=== PATIENT | male | born 1980 | race Caucasian/White ===

== ENCOUNTER 2023-07-14 06:53 | Emergency (ER) | payer OTHER ==
[~2023-07-14] VITALS: Ht 180.3 cm; Wt 111.1 kg
[2023-07-14] MEDS ORDERED: DILTIAZEM HCL 25 MG IV ONE (07:28)
[2023-07-14] MEDS: DILTIAZEM HCL 25 MG IV IV ONE (07:39)
[2023-07-14 07:53] LABS: CALCIUM 9.3 mg/dL (8.5-10.1); CARBON DIOXIDE 20 mmol/L (21-32); CHLORIDE 105 mmol/L (98-107); CREATININE 1.3 mg/dL (0.6-1.3); GLUCOSE 140 mg/dL (74-106); POTASSIUM 4.1 mmol/L (3.5-5.1); SODIUM SERUM 139 mmol/L (136-145); UREA NITROGEN, BLOOD 19 mg/dL (7-18)
[2023-07-14 07:54] LABS: *BILIRUBIN,URIN NEGATIVE (NEGATIVE); *CLARITY,URINE CLEAR (CLEAR); *COLOR,URINE YELLOW (YELLOW); *KETONES,URINE NEGATIVE (NEGATIVE); *PROTEIN,URINE NEGATIVE (NEGATIVE); *UROBILINOGEN,URINE 0.2 E.U./dl (NORMAL); LEUKOCYTE ESTERASE ,URINE NEGATIVE (NEGATIVE); NITRITE, URINE NEGATIVE (NEGATIVE); PH,URINE 6.5 (5.0-8.0); UGLUCOSE NEGATIVE (NEGATIVE)
[2023-07-14 08:05] LABS: ALANINE AMINOTRANSFERASE 40 U/L (16-63); ALBUMIN 4.1 g/dL (3.4-5.0); ALKALINE PHOSPHATASE 96 U/L (50-136); ASPARTATE AMINOTRANSFERASE 18 U/L (15-37); BILIRUBIN,DIRECT 0.1 mg/dL (0.0-0.2); BILIRUBIN,TOTAL 0.9 mg/dL (0.2-1.0); TOTAL PROTEIN, SERUM 7.8 g/dL (6.4-8.2)
[2023-07-14 08:09] LABS: *AMPHETAMINE, URINE NEGATIVE (NEGATIVE); *BARBITURATE, URINE NEGATIVE (NEGATIVE); *BENZODIAZEPINE, URINE NEGATIVE (NEGATIVE); *CANNABINOID, URINE POSITIVE (NEGATIVE); *COCCAINE, URINE NEGATIVE (NEGATIVE); *OPIATE, URINE NEGATIVE (NEGATIVE); *PHENCYCLIDINE SCREEN,URINE NEGATIVE (NEGATIVE)
[2023-07-14 08:09] LABS: ETHANOL < 3 MG/DL (0-10)
[2023-07-14 08:10] LABS: FENTANYL, URINE NEGATIVE (NEGATIVE)
[2023-07-14 08:14] LABS: BASOPHILS % (AUTO) 0.4 % (0.0-2.0); EOSINOPHILS # (AUTO) 0.2 K/uL (0.0-0.7); EOSINOPHILS % (AUTO) 2.4 % (0.0-7.0); HEMATOCRIT 50.6 % (36.7-47.1); HEMOGLOBIN 17.9 g/dL (12.5-16.3); LYMPHOCYTES % (AUTO) 27.3 % (20.5-51.5); MEAN CORPUSCULAR HEMOGLOBIN 31.7 uug (23.8-33.4); MEAN CORPUSCULAR HGB CONC 35 g/dL (32.5-36.3); MEAN CORPUSCULAR VOLUME 89.8 fL (73.0-96.2); MONOCYTES # (AUTO) 0.5 K/uL (0.1-1.30); MONOCYTES % (AUTO) 6.4 % (0.0-11.0); NEUTROPHILS # (AUTO) 4.6 K/uL (1.8-8.9); NEUTROPHILS % (AUTO) 63.5 % (38.5-71.5); PLATELET COUNT (AUTO) 237 K/uL (152-348); RED BLOOD CELL COUNT(AUTO) 5.63 MIL/uL (4.06-5.63); RED CELL DISTRIBUTION WIDTH 13.1 % (12.1-16.2); WHITE BLOOD COUNT (AUTO) 7.2 K/uL (3.6-10.2)
[2023-07-14 08:21] LABS: ACETAMINOPHEN < 10.0 ug/mL (10-30)
[2023-07-14 08:42] LABS: DIFFERENTIAL COMMENT 1
[2023-07-14] MEDS ORDERED: DILT180C66 PO (09:54)
[2023-07-14] MEDS ORDERED: RIVA20TA PO (09:54)
[2023-07-14] MEDS ORDERED: RIVAROXABAN 10 MG TABLET ONE (09:58)
[2023-07-14] MEDS ORDERED: DILTIAZEM HCL CD 120 MG CAP.SR.24H PO ONE (09:59)
[2023-07-14] MEDS: RIVAROXABAN 10 MG TABLET PO STA (10:01)
[2023-07-14] MEDS: DILTIAZEM HCL CD 120 MG CAP.SR.24H PO STA (10:01)
[2023-07-14 10:05] LABS: *BLOOD, URINE TRACE (NEGATIVE)
[2023-07-14 10:28] VITALS: BP 124/79; TEMP 98; O2SAT 97
[2023-07-14 13:49] LABS: RBC,URINE 0-3 /HPF (0-3); WBC,URINE NONE SEEN /HPF (0-3)
== END 2023-07-14 10:29 | disposition home or self-care (01) ==
LOC: ER 07:05
DX: I48.92 Unspecified atrial flutter (principal); F17.200 Nicotine dependence, unspecified, uncomplicated; Z79.899 Other long term (current) drug therapy
CPT/HCPCS: 80076; 80048; 81001; 83880; 85025; 85379; 85730; 84484; 36415; 93005; 71045; 99291; 96374; 80299; 80320; 80307; J3490; J7040; A4606; A4663; G0480

== ENCOUNTER 2023-08-09 08:58 | Emergency (ER) | payer OTHER ==
[~2023-08-09] VITALS: Ht 180.3 cm; Wt 106.6 kg
[~2023-08-09 08:58] MED LIST: DILT180C66 PO; RIVA20TA PO
[2023-08-09 09:51] LABS: BASOPHILS % (AUTO) 0.4 % (0.0-2.0); EOSINOPHILS # (AUTO) 0.1 K/uL (0.0-0.7); EOSINOPHILS % (AUTO) 0.9 % (0.0-7.0); HEMATOCRIT 43.4 % (36.7-47.1); HEMOGLOBIN 15.6 g/dL (12.5-16.3); LYMPHOCYTES # (AUTO) 1.3 K/uL (0.8-4.8); LYMPHOCYTES % (AUTO) 15.2 % (20.5-51.5); MEAN CORPUSCULAR HGB CONC 36 g/dL (32.5-36.3); MONOCYTES # (AUTO) 0.4 K/uL (0.1-1.30); MONOCYTES % (AUTO) 5.2 % (0.0-11.0); NEUTROPHILS # (AUTO) 6.5 K/uL (1.8-8.9); NEUTROPHILS % (AUTO) 78.3 % (38.5-71.5); PLATELET COUNT (AUTO) 279 K/uL (152-348); RED BLOOD CELL COUNT(AUTO) 4.87 MIL/uL (4.06-5.63); RED CELL DISTRIBUTION WIDTH 12.9 % (12.1-16.2); WHITE BLOOD COUNT (AUTO) 8.3 K/uL (3.6-10.2)
[2023-08-09 10:33] LABS: DIFFERENTIAL COMMENT 1
[2023-08-09 10:37] LABS: CALCIUM 8.4 mg/dL (8.5-10.1); CARBON DIOXIDE 22 mmol/L (21-32); CHLORIDE 104 mmol/L (98-107); CREATININE 1.1 mg/dL (0.6-1.3); GLUCOSE 115 mg/dL (74-106); POTASSIUM 3.9 mmol/L (3.5-5.1); SODIUM SERUM 139 mmol/L (136-145); UREA NITROGEN, BLOOD 13 mg/dL (7-18)
[2023-08-09 10:51] LABS: ALANINE AMINOTRANSFERASE 28 U/L (16-63); ALBUMIN 3.7 g/dL (3.4-5.0); ALKALINE PHOSPHATASE 84 U/L (50-136); ASPARTATE AMINOTRANSFERASE 11 U/L (15-37); BILIRUBIN,DIRECT 0.1 mg/dL (0.0-0.2); BILIRUBIN,TOTAL 0.6 mg/dL (0.2-1.0); NT-PRO BNP 138 pg/mL (0-125); TOTAL PROTEIN, SERUM 7.3 g/dL (6.4-8.2)
[2023-08-09] MEDS: CEFTRIAXONE 1 G in IV DEXTROSE 5% 50 ML IV ONE (11:12)
[2023-08-09] MEDS: methylPREDNISolone SOD SUCC 125 MG/2 ML VIAL IV ONE (11:13)
[2023-08-09 12:28] VITALS: BP 119/61; O2SAT 100
== END 2023-08-09 12:29 | disposition home or self-care (01) ==
LOC: ER 08:58
DX: R07.89 Other chest pain (principal); I48.91 Unspecified atrial fibrillation; F17.200 Nicotine dependence, unspecified, uncomplicated; Z79.899 Other long term (current) drug therapy; Z60.2 Problems related to living alone
CPT/HCPCS: 36415; 71045; 84484; 85025; 93005; A4606; A4663